=== PATIENT | female | born 1995 | race Caucasian/White ===

== ENCOUNTER 2016-10-01 12:45 | Emergency (ER) | payer SELFPAY ==
[~2016-10-01 12:45] MED LIST: FAMOTIDINE PO; LORTAB 5-325 M1 EACH PO; ZOFRAN ODT4 MG PO
[2016-10-01] MEDS ORDERED: NO MEDICATIONS (12:47)
== END 2016-10-01 14:00 | disposition home or self-care (01) ==
LOC: SED 12:45
DX: J01.10 Acute frontal sinusitis, unspecified (principal); F33.9 Major depressive disorder, recurrent, unspecified; K58.9 Irritable bowel syndrome, unspecified; F17.210 Nicotine dependence, cigarettes, uncomplicated
CPT/HCPCS: 99282